=== PATIENT | male | born 1990 | race Caucasian/White ===

== ENCOUNTER 2017-05-10 08:07 | Day surgery (SDC) | payer BC ==
[2017-05-10] MEDS ORDERED: Lactated Ringer's 1,000 ML IV ONE (08:42)
[2017-05-10] MEDS ORDERED: Propofol 10 mg/ml Inj (20 ML) ONE (10:11)
[2017-05-10 11:10] VITALS: TEMP 97.5
[2017-05-10 11:32] VITALS: BP 105/67; PULSE 94; RESP 13; O2SAT 100
== END 2017-05-10 11:33 | disposition home or self-care (01) ==
LOC: H.ENDO 08:07
PROVIDERS: ATTEND Internal Medicine Gastroenterology
DX: K51.90 Ulcerative colitis, unspecified, without complications (principal); K64.8 Other hemorrhoids; D13.39 Benign neoplasm of other parts of small intestine; K63.89 Other specified diseases of intestine; K29.70 Gastritis, unspecified, without bleeding
CPT/HCPCS: 43239; 45380; 88305; J2704; J3010; J7120